=== PATIENT | female | born 1930 | race Caucasian/White ===

== ENCOUNTER 2016-09-06 16:26 | Inpatient (IN) | payer OTHER, BC ==
[~2016-09-06] VITALS: Ht 149.9 cm; Wt 67.0 kg
[~2016-09-06 16:26] MED LIST: AMLODIPINE BESY10 MG PO; ASPIRIN81 M2 PO; ATENOLOL50 MG PO; BUPROPION XL150 MG PO; CLOPIDOGREL75 MG PO; ECOTRIN325 MG PO; ERGOCALCIF50000 UNIT PO; KETOCONAZOLE60 GM TP; LASIX20 MG PO; LEVAQUIN500 MG PO; LEVOTHYROXINE100 MCG PO; LOPRESSOR50 MG PO; PRAVASTATIN SOD40 MG PO; SANTYL30 GM TP; SIMVASTATIN20 MG PO; ZESTORETIC 20-1 EAC1 NG
[2016-09-06] MEDS ORDERED: HYDROCHLOROTH12.5 M3 PO (16:40)
[2016-09-06] MEDS ORDERED: ALDACTONE25 MG PO (16:42)
[2016-09-06 17:09] LABS: POINT-OF-CARE METER ID UU13113747
[2016-09-06 18:03] LABS: MCHC 31.8 G/DL (30.0-36.0); MCV 91.3 FL (83-99); PLATELET COUNT 252 K/uL (156-360); RBC DIS.WIDTH-CV 14.5 % (11.8-14.6); RBC DIS.WIDTH-SD 48.6 % (39-53); RED BLOOD COUNT 4.27 M/uL (3.80-5.20); WHITE BLOOD COUNT 4.7 K/uL (4.1-10.2)
[2016-09-06 18:13] LABS: ADD MIUA? YES; BILIRUBIN NEGATIVE; BLOOD SMALL; COLOR STRAW ((YELLOW)); GLUCOSE (STRIP) NEGATIVE; KETONES NEGATIVE; LEUKOCYTES LARGE; NITRITE NEGATIVE; PROTEIN (STRIP) 100; SPECIFIC GRAVITY 1.008 (1.000-1.030); UROBILINOGEN 0.2 MG/DL (0.2-1.0)
[2016-09-06 18:19] LABS: CHLORIDE 105 mEq/L (99-109)
[2016-09-06 18:20] LABS: POTASSIUM 4.8 mEq/L (3.7-5.4); SODIUM 141 mEq/L (136-147)
[2016-09-06 18:21] LABS: GLUCOSE 86 mg/dL (70-99)
[2016-09-06 18:23] LABS: ANION GAP 10 MEQ/L (2-14)
[2016-09-06 18:25] LABS: GFR ESTIMATE (CALCULATED) 50 mL/min/
[2016-09-06 18:26] LABS: UREA NITROGEN (BUN) 43 mg/dL (9-23)
[2016-09-06 18:32] LABS: TROP-I INTERPRETATION NEGATIVE; TROPONIN-I 0.02 ng/mL (0.0-0.30)
[2016-09-06 18:40] LABS: BACTERIA RARE /HPF; CASTS NONE SEEN /LPF; CRYSTALS NONE SEEN; EPITHELIAL CELLS RARE /HPF; MUCUS NONE SEEN /LPF; RED BLOOD CELLS 0-5 /HPF (0-5); UCUL ADDED? YES
[2016-09-06] MEDS ORDERED: FUROSEMIDE20 MG PO (19:26)
[2016-09-06] MEDS ORDERED: ERGOCALCIF50000 UNIT PO (19:26)
[2016-09-06 22:45] VITALS: BP 128/58
[2016-09-07 04:05] VITALS: BP 132/59
[2016-09-07 07:02] LABS: HEMATOCRIT 38.4 % (36.0-46.0); MCV 93.7 FL (83-99); MEAN PLAT.VOLUME 9.9 uM^3 (9.5-12.4); PLATELET COUNT 241 K/uL (156-360); RBC DIS.WIDTH-CV 15.2 % (11.8-14.6); RBC DIS.WIDTH-SD 51.9 % (39-53); WHITE BLOOD COUNT 5.3 K/uL (4.1-10.2)
[2016-09-07 07:22] LABS: ALKALINE PHOSPHATASE 122 IU/L (3-129); ANION GAP 7 MEQ/L (2-14); CHLORIDE 110 MEQ/L (99-109); GFR ESTIMATE (CALCULATED) 50 mL/min/; GLUCOSE 80 mg/dL (70-99); POTASSIUM 4.7 MEQ/L (3.7-5.4); SAMPLE HEMOLYSIS CHECK 0; SAMPLE ICTERIC CHECK 0; SAMPLE LIPEMIA CHECK 0; SODIUM 144 MEQ/L (136-147); TOTAL BILIRUBIN 0.4 MG/DL (0.0-1.0); UREA NITROGEN (BUN) 31 mg/dL (9-23)
[2016-09-07 08:27] VITALS: BP 142/62
[2016-09-07 11:34] VITALS: BP 155/66
[2016-09-07 15:57] VITALS: BP 147/63
[2016-09-07 19:44] VITALS: BP 149/66
[2016-09-08] VITALS (7 sets, daily range): BP systolic 120–188; BP diastolic 55–78
[2016-09-09 04:00] VITALS: BP 162/69
[2016-09-09 07:26] VITALS: BP 150/69
[2016-09-09] MEDS ORDERED: FLORASTOR250 MG PO (09:15)
[2016-09-09] MEDS ORDERED: CIPROFLOXACIN250 MG PO (09:15)
[2016-09-09 11:02] VITALS: BP 125/60
== END 2016-09-09 12:08 | disposition home health service (06) | DRG 918 ==
LOC: EME 16:26 → EDOF 20:32 → 5SOUTH 20:32 → ENRESERV 20:34 → 5SOUTH 22:19
PROVIDERS: Emergency Medicine; Internal Medicine
DX: T50.901A Poisoning by unspecified drugs, medicaments and biological substances, accidental (unintentional), initial encounter (principal); T68.XXXA Hypothermia, initial encounter; L03.115 Cellulitis of right lower limb; E11.9 Type 2 diabetes mellitus without complications; L03.116 Cellulitis of left lower limb; N30.01 Acute cystitis with hematuria; I10 Essential (primary) hypertension; R26.81 Unsteadiness on feet; Z95.2 Presence of prosthetic heart valve; E78.5 Hyperlipidemia, unspecified; I25.10 Atherosclerotic heart disease of native coronary artery without angina pectoris; E03.9 Hypothyroidism, unspecified; Z79.82 Long term (current) use of aspirin; Z79.899 Other long term (current) drug therapy; Z91.81 History of falling
CPT/HCPCS: 71010; 80048; 80053; 81003; 82948; 83605; 83880; 84443; 84484; 85027; 87040; 87086; 93970; 99281; 99285; J1644; J1956; J7030

== ENCOUNTER 2016-09-24 12:10 | Emergency (ER) | payer OTHER, BC ==
[~2016-09-24] VITALS: Ht 149.9 cm; Wt 64.5 kg
[~2016-09-24 12:10] MED LIST changes: +ALDACTONE25 MG PO; +CIPROFLOXACIN250 MG PO; +FLORASTOR250 MG PO; +FUROSEMIDE20 MG PO; +HYDROCHLOROTH12.5 M3 PO
[2016-09-24 13:00] LABS: ADD MIUA? YES; BILIRUBIN NEGATIVE; BLOOD MODERATE; COLOR YELLOW ((YELLOW)); GLUCOSE (STRIP) NEGATIVE; KETONES NEGATIVE; LEUKOCYTES LARGE; NITRITE NEGATIVE; PROTEIN (STRIP) 100; SPECIFIC GRAVITY 1.008 (1.000-1.030); UROBILINOGEN 0.2 MG/DL (0.2-1.0)
[2016-09-24 13:14] LABS: BACTERIA 2+ /HPF; CASTS NONE SEEN /LPF; CRYSTALS NONE SEEN; EPITHELIAL CELLS 2+ /HPF; MUCUS NONE SEEN /LPF; UCUL ADDED? YES; WHITE BLOOD CELLS 40-50 /HPF (0-5)
[2016-09-24 13:35] LABS: EOSINOPHIL COUNT 0.1 K/uL (0-0.3); HEMATOCRIT 43.8 % (36.0-46.0); IMMATURE GRANULOCYTE (%) 0.5 % (0.0-0.7); INSTRUMENT ABS NEUTROPHIL CT 5.7 K/uL; MCH 29.5 PG (29.0-34.0); MCHC 32.6 G/DL (30.0-36.0); MCV 90.3 FL (83-99); MEAN PLAT.VOLUME 9.2 uM^3 (9.5-12.4); MONOCYTE (%) 11.6 % (3-12); MONOCYTE COUNT 0.9 K/uL (0-0.8); NEUTROPHIL (%) 73.9 % (45-76); NEUTROPHIL COUNT 5.7 K/uL (1.8-6.4); PLATELET COUNT 279 K/uL (156-360); RBC DIS.WIDTH-CV 14.3 % (11.8-14.6); RBC DIS.WIDTH-SD 47.5 % (39-53); RED BLOOD COUNT 4.85 M/uL (3.80-5.20); WHITE BLOOD COUNT 7.7 K/uL (4.1-10.2)
[2016-09-24 13:52] LABS: CHLORIDE 100 mEq/L (99-109); SODIUM 139 mEq/L (136-147)
[2016-09-24 13:54] LABS: GLUCOSE 111 mg/dL (70-99)
[2016-09-24 13:56] LABS: ANION GAP 11 MEQ/L (2-14)
[2016-09-24 13:58] LABS: GFR ESTIMATE (CALCULATED) 41 mL/min/
[2016-09-24 13:59] LABS: UREA NITROGEN (BUN) 34 mg/dL (9-23)
[2016-09-24 14:05] LABS: TROP-I INTERPRETATION NEGATIVE; TROPONIN-I < 0.01 ng/mL (0.0-0.30)
[2016-09-24] MEDS ORDERED: CIPRO500 MG PO (14:20)
[2016-09-24 15:01] VITALS: BP 160/61
[2016-09-25] MEDS ORDERED: ZOVIRAX800 M1 PO (18:38)
[2016-09-25] MEDS ORDERED: PERCOCET 5/31 TABLET PO (18:38)
== END 2016-09-24 15:01 | disposition home or self-care (01) ==
LOC: EME 12:10
PROVIDERS: Emergency Medicine
DX: N39.0 Urinary tract infection, site not specified (principal); E78.5 Hyperlipidemia, unspecified; I10 Essential (primary) hypertension; Z95.2 Presence of prosthetic heart valve; Z79.82 Long term (current) use of aspirin
CPT/HCPCS: 71010; 80048; 81003; 84484; 85025; 87086; 93005; 99281; 99285

== ENCOUNTER 2016-09-25 18:06 | Emergency (ER) | payer OTHER, BC ==
[~2016-09-25] VITALS: Ht 149.9 cm; Wt 60.9 kg
[~2016-09-25 18:06] MED LIST changes: +CIPRO500 MG PO
[2016-09-25] MEDS ORDERED: PERCOCET 5/31 TABLET PO (18:38)
[2016-09-25] MEDS ORDERED: ZOVIRAX800 M1 PO (18:38)
[2016-09-25 18:49] VITALS: BP 142/74
== END 2016-09-25 18:59 | disposition home or self-care (01) ==
LOC: EME 18:06
DX: B02.9 Zoster without complications (principal); I10 Essential (primary) hypertension; E78.5 Hyperlipidemia, unspecified; Z95.2 Presence of prosthetic heart valve; Z79.82 Long term (current) use of aspirin
CPT/HCPCS: 99281; 99284; J2270

== ENCOUNTER 2016-09-26 10:31 | Inpatient (IN) | payer OTHER, BC ==
[~2016-09-26 10:31] MED LIST changes: +PERCOCET 5/31 TABLET PO; +ZOVIRAX800 M1 PO
[2016-09-26 10:51] LABS: BASOPHIL COUNT 0.1 K/uL (0-0.1); EOSINOPHIL (%) 0.2 % (0-5); HEMATOCRIT 41.8 % (36.0-46.0); IMMATURE GRANULOCYTE (%) 3.8 % (0.0-0.7); IMMATURE GRANULOCYTE COUNT 0.9 K/uL; INSTRUMENT ABS NEUTROPHIL CT 15.5 K/uL; LYMPHOCYTE COUNT 4.5 K/uL (1.0-2.8); MCH 29.3 PG (29.0-34.0); MCHC 32.8 G/DL (30.0-36.0); MCV 89.3 FL (83-99); MONOCYTE (%) 10.2 % (3-12); MONOCYTE COUNT 2.4 K/uL (0-0.8); NEUTROPHIL (%) 66.2 % (45-76); NEUTROPHIL COUNT 15.5 K/uL (1.8-6.4); NRBC (%) 0.9 /100 WBC (0-0); RBC DIS.WIDTH-CV 14.7 % (11.8-14.6); RBC DIS.WIDTH-SD 47.2 % (39-53); RED BLOOD COUNT 4.68 M/uL (3.80-5.20); WHITE BLOOD COUNT 23.4 K/uL (4.1-10.2)
[2016-09-26 10:53] LABS: INTER. NORMALIZED RATIO 1.4; PROTHROMBIN TIME 15.4 SEC (10.2-12.9)
[2016-09-26 10:56] LABS: PTT 34.7 SEC (25-37)
[2016-09-26 10:57] LABS: AMYLASE 103 IU/L (1-118); CHLORIDE 98 mEq/L (99-109)
[2016-09-26 11:01] LABS: ANION GAP 36 MEQ/L (2-14)
[2016-09-26 11:01] LABS: ANION GAP 25 MEQ/L (2-14); CHLORIDE 95 mEq/L (99-109); CREATININE 2.5 mg/dL (0.6-1.3); GLUCOSE 376 mg/dL (70-99); ISTAT DEVICE 359068; POTASSIUM > 6.0 mEq/L (3.7-5.4); SODIUM 133 mEq/L (136-147); UREA NITROGEN (BUN) 74 mg/dL (9-23)
[2016-09-26 11:02] LABS: SERUM ETHYL ALCOHOL 18 mg/dL
[2016-09-26 11:06] LABS: LIPASE 74 U/L (1.0-51.0)
[2016-09-26 11:12] LABS: BASE EXCESS -18.9 mEq/L (-3 to +3); BICARBONATE 10.1 mEq/L (22-26); CARBOXY HGB 0 % (0-5); METHEMOGLOBIN 0.3 % (0-1.5); PCO2 35 mm Hg (35-45); PO2 451 mm Hg (80-100)
[2016-09-26 11:12] LABS: SODIUM 157 mEq/L (136-147)
[2016-09-26 11:13] LABS: COMMENTS - BLOOD GASES A+C+; DEVICE 980; FI02 100 %; MECHANICAL RATE 18 resp/min; MODE AC; PEEP 5 CM/H20; SITE RR; TIDAL VOLUME 400 ML; TOTAL RESP RATE 22 resp/min; pH 7.07 (7.35-7.45)
[2016-09-26 11:16] LABS: GFR ESTIMATE (CALCULATED) 20 mL/min/; GLUCOSE 20 mg/dL (70-99); UREA NITROGEN (BUN) 64 mg/dL (9-23)
[2016-09-26 11:17] LABS: TROP-I INTERPRETATION NEGATIVE; TROPONIN-I 0.03 ng/mL (0.0-0.30)
[2016-09-26 11:38] LABS: MEAN PLAT.VOLUME 10.5 uM^3 (9.5-12.4); PLAT.SUFFICIENCY ADEQUATE
[2016-09-26 11:46] LABS: POTASSIUM 5.7 mEq/L (3.7-5.4)
[2016-09-26 11:48] LABS: PLATELET COUNT 192 K/uL (156-360)
[2016-09-26 12:45] LABS: POINT-OF-CARE METER ID UU14100415
[2016-09-26 16:00] VITALS: BP 81/41
[2016-09-26 16:12] VITALS: BP 81/41
[2016-09-26 16:30] VITALS: BP 55/30
[2016-09-26 18:26] LABS: METH RESISTANT S AUREUS PCR NEGATIVE (NEGATIVE)
[2016-09-26 18:51] LABS: PROBE CHECK PASS; SPECIMEN PROCESSING CONTROL PASS
== END 2016-09-26 18:16 | DRG 297 ==
LOC: EME 10:31 → EDOF 14:57 → ENRESERV 15:06 → CANRESERV 15:18 → ENRESERV 15:18 → 4WEST 15:58
PROVIDERS: Emergency Medicine; Internal Medicine Critical Care Medicine
DX: I46.9 Cardiac arrest, cause unspecified (principal); E11.9 Type 2 diabetes mellitus without complications; S22.20XA Unspecified fracture of sternum, initial encounter for closed fracture; J98.11 Atelectasis; S30.1XXA Contusion of abdominal wall, initial encounter; E78.5 Hyperlipidemia, unspecified; I47.2 Ventricular tachycardia; S27.0XXA Traumatic pneumothorax, initial encounter; I48.91 Unspecified atrial fibrillation; E86.1 Hypovolemia; E03.9 Hypothyroidism, unspecified; I35.0 Nonrheumatic aortic (valve) stenosis; X58.XXXA Exposure to other specified factors, initial encounter; S22.41XA Multiple fractures of ribs, right side, initial encounter for closed fracture; E87.2 Acidosis; B02.9 Zoster without complications; N17.9 Acute kidney failure, unspecified; E87.5 Hyperkalemia; Y93.89 Activity, other specified; Z95.5 Presence of coronary angioplasty implant and graft; Z95.2 Presence of prosthetic heart valve; Z88.0 Allergy status to penicillin; Z88.1 Allergy status to other antibiotic agents; Z88.8 Allergy status to other drugs, medicaments and biological substances
CPT/HCPCS: 36600; 70450; 71010; 71250; 74176; 80047; 80048; 80048 91; 81003; 82150; 82803; 82948; 83605; 83690; 84484; 84999; 85025; 85610; 85730; 86900; 86901; 87040; 87641; 90832; 93005; 94002; 99281; 99283; C1751; G0480; J0171; J0282; J0461; J1956; J7030